=== PATIENT | male | born 1935 | race Caucasian/White ===

== ENCOUNTER → 2017-07-27 | Outpatient (CLI) | payer OTHER, MEDICARE | LOC: FIMAGING 10:41 | PROVIDERS: ATTEND Internal Medicine | DX: R91.1 Solitary pulmonary nodule (principal); I31.3 Pericardial effusion (noninflammatory) ==

== ENCOUNTER 2017-08-24 10:16 | Day surgery (SDC) | payer OTHER, MEDICARE ==
[2017-08-24] MEDS ORDERED: FLUMAZENIL 0.5 MG/5 ML MDV IVP ONE (10:34)
[2017-08-24] MEDS ORDERED: ONDANSETRON 4 MG/2 ML VIAL ONE (10:34)
[2017-08-24] MEDS ORDERED: NALOXONE HCL 0.4 MG/ML INJ ONE (10:34)
[2017-08-24] MEDS ORDERED: MIDAZOLAM 2 MG/2 ML VIAL ONE (10:35)
[2017-08-24] MEDS ORDERED: fentaNYL 100 MCG/2 ML INJ ONE (10:35)
[2017-08-24 10:46] VITALS: PULSE 60
[2017-08-24 11:11] LABS: HEMATOCRIT 44.9 % (40.0-51.0)
[2017-08-24 11:19] LABS: INR 1.35 (0.83-1.16); PROTIME(PATIENT) 16.7 SEC (12.0-15.0)
[2017-08-24] MEDS ORDERED: FLUMAZENIL 0.5 MG/5 ML MDV IVP PRN (11:19)
[2017-08-24] MEDS ORDERED: MEPERIDINE 25 MG/ML SYR IVP PRN (11:19)
[2017-08-24] MEDS ORDERED: fentaNYL 100 MCG/2 ML INJ IVP PRN (11:19)
[2017-08-24] MEDS ORDERED: NALOXONE HCL 0.4 MG/ML INJ IVP PRN (11:19)
[2017-08-24] MEDS ORDERED: PROTAMINE SULFATE 50 MG/5 ML VIAL IVP PRN (11:19)
[2017-08-24] MEDS ORDERED: ALTEPLASE 2 MG VIAL IVP PRN (11:19)
[2017-08-24] MEDS ORDERED: GLUCAGON HCL 1 MG VIAL IVP PRN (11:19)
[2017-08-24] MEDS ORDERED: HEPARIN 10,000 UNIT/10 ML MDV IVP PRN (11:19)
[2017-08-24] MEDS ORDERED: MIDAZOLAM 2 MG/2 ML VIAL IVP PRN (11:19)
[2017-08-24 11:20] LABS: APTT 37.1 SEC (23.0-38.0)
[2017-08-24] MEDS ORDERED: NS 1,000 ML IV SCH (11:30)
--- NOTE | 2017-08-24 13:30 | PDGENHP ---
History & Physical Chief Complaint: GROWING LLL LUNG NODULE History of Present Illness: THIS NODULE HAS BEEN FOLLOWED BECAUSE OF ITS SLOW GROWING PROPERTIES. IT'S GROWN FASTER IN THE LAST 6 MONTHS. NOW AMENDABLE TO BIOPSY. Pertinent Past, Social, Family History: N/A. Relevant Physical Exam: STOPPED COUMADIN X 6 DAYS AGO Cardiorespiratory Assessment: RRR, CTA
--- NOTE | 2017-08-24 13:31 | PDPROPOC ---
Sedation Plan of Care Sedation Plan of Care: vital signs stable, mental status noted, patient educated of risks, benefits, alternatives, patient can tolerate sedation ASA Classification: ASA 2 Planned drugs: fentanyl, midazolam Mallampati Score: Class 1 Mallampati Reference Image: Patient passed 3-3-2 rule?: Yes
--- NOTE | 2017-08-24 14:56 | PDRADPN ---
Radiology Procedure Note Date of Procedure: 08/24/17 Radiologist: Sonia Andino Anesthesia: IV Sedation (fentanyl and versed) Pre-op Diagnosis: LLL lung nodule Post-op Diagnosis: same Indication: enlarging nodule Procedure: LLL CT guided biopsy Finding(s): Small ptx, not enlarging during case. Mild hemoptysis, WNL. Inf/Abcess present in the surg proc area at time of surgery?: No Complications: small ptx. Specimen(s): Lung nodule Bx cores.
[2017-08-24 15:31] VITALS: TEMP 97.7
[2017-08-24 18:14] VITALS: BP 144/80; RESP 20; O2SAT 93
== END 2017-08-24 18:15 | disposition home or self-care (01) ==
LOC: FIMAGING 10:16
PROVIDERS: ATTEND Internal Medicine
PROC: 0BBL3ZX Excision of Left Lung, Percutaneous Approach, Diagnostic (ICD-10-PCS; principal; 2017-08-24 15:11)
DX: J84.10 Pulmonary fibrosis, unspecified (principal); Z79.01 Long term (current) use of anticoagulants
CPT/HCPCS: J2250; J2310; J2405; J3010

== ENCOUNTER 2019-01-17 07:34 | Observation (INO) | payer OTHER, MEDICARE ==
[2019-01-17] MEDS ORDERED: NS 1,000 ML IV ONE (07:35)
[2019-01-17] MEDS ORDERED: ceFAZolin 2 GM/DEXTROSE 100 ML IV ONE (07:35)
[2019-01-17] MEDS ORDERED: BACITRACIN IRRIGATION/NS 50,000 UNITS/1,000 ML BTL IRR ONE (07:35)
[2019-01-17] MEDS ORDERED: diphenhydrAMINE 25 MG CAP PO ONE (07:35)
[2019-01-17] MEDS ORDERED: LIDOCAINE 2% 2 ML INJ ONE (07:57)
[2019-01-17] MEDS ORDERED: PROPOFOL/EMULSION 500 MG/50 ML BOTTLE IV ONE ×3 (07:57→09:37)
[2019-01-17] MEDS ORDERED: fentaNYL 100 MCG/2 ML INJ ONE (07:57)
[2019-01-17 08:19] LABS: PLATELET COUNT 182 10^3/uL (150-400)
[2019-01-17] MEDS ORDERED: BUPIVACAINE 0.75% 10 ML SDV ONE (08:19)
[2019-01-17] MEDS ORDERED: LIDOCAINE 1% 300 MG/30 ML SDV ONE (08:19)
--- NOTE | 2019-01-17 08:34 | CPEKG ---
Test Reason : OPEN Blood Pressure : / mmHG Vent. Rate : 058 BPM Atrial Rate : 000 BPM P-R Int : 138 ms QRS Dur : 110 ms QT Int : 479 ms P-R-T Axes : 000 034 074 degrees QTc Int : 471 ms Afib/flut and V-paced complexes Nonspecific repol abnormality, diffuse leads Borderline prolonged QT interval Confirmed by Emmanuel Christianson ([id number]) on 01/17/2019 8:34:23 AM Referred By: Denzel Frazier Confirmed By:Emmanuel Christianson
[2019-01-17 08:39] LABS: INR 1.6 (0.83-1.16); PROTIME(PATIENT) 18.3 SEC (12.0-15.0)
--- NOTE | 2019-01-17 08:39 | PDANEPAE ---
ANE Past Medical History - Cardiovascular History Hx Hypertension: Yes Hx Arrhythmias: No Hx Chest Pain: No Hx Coronary Artery / Peripheral Vascular Disease: No Hx CHF / Valvular Disease: Yes Hx Palpitations: No - Pulmonary History Hx COPD: No Hx Asthma/Reactive Airway Disease: No Hx Recent Upper Respiratory Infection: No Hx Oxygen in Use at Home: No Hx Sleep Apnea: Yes - Neurologic History Hx Cerebrovascular Accident: No Hx Seizures: No Hx Dementia: Yes Neurologic History Comment: questionable TIA. 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 - GI History Hx Gastrointestinal Disorders: No - Chronic Pain History Chronic Pain: No - Surgical History Prior Surgeries: Abdominal hernia removal, pacemaker, colonoscopies ANE Review of Systems Review of Systems: - Pacemaker Date Pacemaker Last Checked: 06-21-12 ANE Patient History - Allergies Allergies/Adverse Reactions: lorazepam [From Ativan] Allergy (Intermediate, Verified 08/24/17 10:49) Anxiety - Home Medications Home Medications: Carvedilol [Coreg (*)] 25 mg PO DAILY 08/20/17 [Last Taken 08/24/17] Digoxin [Lanoxin 125 mcg (RX)] 125 mcg PO DAILY #0 08/20/17 [Last Taken 08/24/17 ] Diltiazem HCl [Cartia XT 180mg] 180 mg PO DAILY #0 08/20/17 [Last Taken 08/24/17 ] Olmesartan Medoxomil [Benicar] 40 mg PO DAILY #0 08/20/17 [Last Taken 08/24/17] Warfarin Sodium [Coumadin 5MG (*)] 5 mg PO MOTUWETHFRSA #0 08/20/17 [Last Taken 08/19/17] Warfarin Sodium [Coumadin 7.5MG (*)] 7.5 mg PO CARD #0 08/20/17 [Last Taken ] Acetaminophen [Tylenol 325mg (*)] 325 mg PO Q6 PRN 01/16/19 [Last Taken Unknown] - Smoking Hx Smoking Status: Never smoked ANE Labs/Vital Signs - Labs Result Diagrams: 01/17/19 08:00 01/17/19 08:00 - Vital Signs Height: 178 cm Weight: 91.2 kg ANE Physical Exam - Airway Neck exam: FROM Mallampati Score: Class 2 - Pulmonary Pulmonary: no respiratory distress, no rales or rhonchi, clear to auscultation - Cardiovascular Cardiovascular: regular rate and rhythym, no murmur, rub, or gallop - ASA Status ASA Status: III ANE Anesthesia Plan Anesthesia Plan: GA with mask Total IV Anesthesia: Yes
--- NOTE | 2019-01-17 08:39 | POSTANESTH ---
Post Anesthetic Evaluation Cardiovascular Status: Normal, Stable Respiratory Status: Normal, Stable Level of Consciousness/Mental Status: Can Participate in Eval Pain Control: Adequate, Prn Tx Ordered Nausea/Vomiting Control: Adequate, Prn Tx Ordered Complications Possibly Related to Anesthesia: None Noted
--- NOTE | 2019-01-17 08:42 | PDGENHP ---
History & Physical Chief Complaint: afib, bradycardia History of Present Illness: device is at eos Relevant Physical Exam: s1s2 irreg. cta. ao3 Cardiorespiratory Assessment: for new v lead and new pacemaker generator. risks incl tamponade, pneumothorax, infection, bleeding, d.w. pt and
[2019-01-17] MEDS ORDERED: IOPAMIDOL (ISOVUE-300) 100 ML BTL ONE (08:56)
[2019-01-17] MEDS ORDERED: PHENYLEPHRINE HCL 100 MCG/ML SYR ONE ×2 (09:08→09:33)
[2019-01-17] MEDS ORDERED: ePHEDrine SULFATE 25 MG/5 ML SYR ONE ×2 (09:08→09:33)
[2019-01-17] MEDS ORDERED: ACETAMINOPHEN 325 MG TAB PO PRN (10:34)
--- NOTE | 2019-01-17 10:52 | EPPROC ---
Electrophysiology Procedure Note: PROCEDURE PERFORMED: 1. Implantation of an V Pacemaker 2. Subclavian vein angiography 3. Fluoroscopy INDICATION: AFIB Bradycardia Previously implanted pacemaker at EOS, RV lead is suboptimal PROCEDURE NOTE: Patient presented to the cardiac catherization laboratory in a fasting, post absorptive state. Anesthesiologist administered sedation. The left infraclavicular area was prepped and draped in the usual sterile fashion. Lidocaine plus bupivacaine was used for local anesthesia. Left subclavian venography was performed by injection of iodinated contrast into the left antecubital vein. This was done to assure patency of the vein and also to assess for any anatomical aberrations. Using a combination of blunt and sharp dissection and electrocautery, the dissection was carried down to the prepectoral fascia. Previous pacemaker pocket was opened. All bleeding was controlled with electrocautery. The pocket was packed with gauze soaked in antibiotic solution. Fluoroscopy was utilized during the entire procedure for venous access and placement of the leads. The previously placed Using a direct stick technique the left extrathoracic axillary vein was accessed with 1 stick using the modified Seldinger technique. Placement of the guidewire into the venous system was confirmed by low-pressure blood return and also by visualizing the guide wire advancing into the inferior vena cava. A purse string suture was applied around the guide wire. One #6 Italian sheath was advanced under fluoroscopic guidance over the guidewire. An active fixation ventricular lead was advanced into the right ventricular apex and screwed in place. The peel away sheath was removed. Pacing thresholds, sensing parameters and lead impedances were measured. There was no diaphragmatic stimulation at maximum output. The lead was sutured to the prepectoral fascia with 3 nonabsorbable sutures. The pocket was again inspected for any bleeding. The lead was attached to the pacemaker securely. The pacemaker was inserted into the pocket and secured in place with a nonabsorbable suture. Fluoroscopy was performed in GARCIA and TONY planes to verify right-sided placement of the lead. Also fluoroscopy of the pacemaker pocket was performed. The pacemaker pocket was closed in 3 layers with absorbable monocryl sutures and hoda. Appropriate dressing was applied. The patient left the cardiac catheterization laboratory in stable condition. Serial Numbers: 1. Device: [facility] [id number] SN [id number] - SYSTEM NOT MRI COMPATIBLE DUE TO ABANDONED LEAD 2. Ventricular Lead: [facility] [id number] 3. Capped V lead (unusable) M 1688TC SN [id number] Stimulation Thresholds & Impedance Measurements: 1. Ventricular Lead 0.3 V 0.5 ms 5.1 mV R wave 501 ohm Virgil Pacing Parameters 1. Pacing mode: VVIR 2. Lower rate: 60 ppm 3. Upper tracking rate:120 ppm 4. Upper sensor rate:120 ppm Patient Problems: Problems Problem Status Onset Bradycardia Acute Nodule of left lung Acute
[2019-01-17] MEDS ORDERED: WARFARIN SODIUM 5 MG TAB PO SCH (16:00)
[2019-01-18 04:47] LABS: PLATELET COUNT 170 10^3/uL (150-400)
[2019-01-18 06:54] VITALS: BP 162/95
[2019-01-18] MEDS ORDERED: DILTIAZEM CD 180 MG CAP PO SCH (09:00)
[2019-01-18] MEDS ORDERED: OLMESARTAN MEDOXOMIL 20 MG TAB PO SCH (09:00)
[2019-01-18] MEDS ORDERED: DIGOXIN 125 MCG TAB PO SCH (09:00)
[2019-01-18] MEDS ORDERED: CARVEDILOL 25 MG TAB PO SCH (09:00)
--- NOTE | 2019-01-18 11:21 | GDS ---
[f rep st] DISCHARGE SUMMARY ADMISSION DIAGNOSES: 1. Bradycardia. 2. Atrial fibrillation. 3. Previous implanted pacemaker at end of service with suboptimal right ventricle lead. DISCHARGE DIAGNOSES: Ventricular lead revision and implant of a new [employer] permanent pacemaker. HOSPITAL COURSE: Patient presented 01/17/2019, for a ventricular lead revision and generator change. This was completed successfully by Dr. Denzel Frazier without any inter-procedure complications. Devic e interrogation this morning demonstrates normal device function and chest x-ray this morning demonst rates stable lead positioning. Patient is appropriate and stable for discharge home today. PHYSICAL EXAMINATION: GENERAL: Alert and oriented x4, in no apparent distress. VITAL SIGNS: Blood pressure 159/81, heart rate 63, respiratory rate 18, SpO2 93% on room air, temp 36.5 degrees Celsius . RESPIRATORY: Lungs are clear to auscultation without adventitious breath sounds. CARDIAC: Irreg ularly irregular rhythm, regular rate, S1, S2. ABDOMEN: Normoactive bowel sounds times all 4 quadra nts. No masses or tenderness. Soft to palpation. SKIN: Theodore, warm, dry without cyanosis, clubbing , or peripheral edema. Left pectoral incision has a clean and dry dressing in place without evidence of hematoma, redness, oozing, streaking, or warmth. No evidence of hematoma. EXTREMITIES: Pulses 2+ bilaterally. No edema. LABORATORY STUDIES: Drawn today demonstrates stable CBC and BMP compared to preprocedure. PROCEDURES: Ventricular lead revision and generator change as mentioned above. Chest x-ray this morning as mentioned above. EKG this morning demonstrates atrial fibrillation with V paced complexes. DISPOSITION: Patient will be discharged home in stable condition. He is under activity restrictions as below. DISCHARGE MEDICATIONS: Please see discharge medication reconciliation sheet for full details. Franklin noble note that no medication changes were made during this hospitalization, and patient has been restart ed on his preprocedure dose of Coumadin. DISCHARGE INSTRUCTION: Post pacemaker instructions reviewed with patient and his in detail. 1. We discussed activity restrictions, including avoidance of lifting his left arm above the level o f his shoulder, putting it behind his back, pushing, pulling, or lifting more than 5 pounds for the n ext 4 weeks. He will avoid strenuous upper body exercises for the next 6 weeks. 2. He will keep his left pectoral incision clean and dry. If his dressing becomes saturated, he amanda l remove it and leave his incision open to air. 3. He will have his hoda removed locally in [place], [place] in 1 week. 4. He will present for postprocedure followup to Dr. Frazier or Dr. Quijano in 2 to 4 weeks. 5. Patient's verbalized understanding regarding all discharge instructions without questions or concerns. He will contact the clinic if he has any new or concerning symptoms prior to his upcoming followup visits. Time spent on discharge greater than 30 minutes. /[id number]/MODL
--- NOTE | 2019-01-18 11:22 | ASDISCHSUM ---
Discharge Information Plan Status:Home with No Needs Medically Cleared to Leave:01/18/2019 Discharge Date:01/18/2019 CM D/C Disposition:Home, Routine, Self-Care ADT D/C Disposition:Home, Routine, Self-Care Projected Discharge Date:01/18/2019 Transportation at D/C: Discharge Delay Reason: Follow-Up Date:01/18/2019 Discharge Slot: Final Diagnosis: Placement Information Patient Contact Information Contact Name:ARCELIA Relationship: Address:[address] [place] Work Phone: City:[facility] Phone: [facility]/Zip Code:[place] [address] Email: Financial Information Financial Class:Medicare Primary Plan Desc:MEDICARE OUTPATIENT Primary Plan Number:[id number] Secondary Plan Desc:ROLANDO/NENA SUPPLEMENT Secondary Plan Number:[id number] Assessment Information LACE LACE Length of stay for Answers: 1 day current admission Acuity / Level of Answers: No Care: Did the patient have an inpatient admission? Comorbidities - select Answers: Congestive heart failure all that apply Dementia Other Notes: HTN # of Emergency department Answers: 0 visits in the last 6 months Score: 7 Date Signed: 01/18/2019 11:21 AM Electronically Signed By:Sofia Flores RN Intervention Information
--- NOTE | 2019-01-19 10:22 | CPEKG ---
Test Reason : OPEN Blood Pressure : / mmHG Vent. Rate : 060 BPM Atrial Rate : 057 BPM P-R Int : 086 ms QRS Dur : 173 ms QT Int : 489 ms P-R-T Axes : 000 -73 104 degrees QTc Int : 489 ms Afib and ventricular-paced rhythm Confirmed by Emmanuel Christianson ([id number]) on 01/19/2019 10:22:07 AM Referred By: Denzel Frazier Confirmed By:Emmanuel Christianson
--- NOTE | 2019-01-19 10:25 | CPEKG ---
Test Reason : OPEN Blood Pressure : / mmHG Vent. Rate : 064 BPM Atrial Rate : 000 BPM P-R Int : 200 ms QRS Dur : 101 ms QT Int : 401 ms P-R-T Axes : 000 029 037 degrees QTc Int : 414 ms Ventricular-paced complexes S1,S2,S3 pattern Abnrm T, consider ischemia, anterolateral lds Confirmed by Emamnuel Christianson ([id number]) on 01/19/2019 10:25:35 AM Referred By: Denzel Frazier Confirmed By:Emmanuel Christianson
[2019-01-22] MEDS ORDERED: WARFARIN SODIUM 7.5 MG TAB PO SCH (16:00)
== END 2019-01-18 12:50 | disposition home or self-care (01) ==
LOC: FCATH 07:34 → F2W 10:33
PROVIDERS: ADMIT Registered Nurse; ATTEND Internal Medicine Cardiovascular Disease
PROC: 02HK3JZ Insertion of Pacemaker Lead into Right Ventricle, Percutaneous Approach (ICD-10-PCS; principal; 2019-01-17)
PROC: 0JH604Z Insertion of Pacemaker, Single Chamber into Chest Subcutaneous Tissue and Fascia, Open Approach (ICD-10-PCS; principal; 2019-01-17)
PROC: 0JPT0PZ Removal of Cardiac Rhythm Related Device from Trunk Subcutaneous Tissue and Fascia, Open Approach (ICD-10-PCS; principal; 2019-01-17)
DX: Z45.010 Encounter for checking and testing of cardiac pacemaker pulse generator [battery] (principal); T82.110A Breakdown (mechanical) of cardiac electrode, initial encounter; I49.5 Sick sinus syndrome; I48.91 Unspecified atrial fibrillation; I42.9 Cardiomyopathy, unspecified; I34.0 Nonrheumatic mitral (valve) insufficiency; I10 Essential (primary) hypertension; Z85.828 Personal history of other malignant neoplasm of skin
CPT/HCPCS: 33207; 33233; 71045; 71046; 93005; J0690; J2370; J2704; J3010; Q9967